=== PATIENT | female | born 1975 | race African-American/Black ===

== ENCOUNTER 2019-11-23 15:56 | Day surgery (SDC) | payer BC, OTHER ==
[2019-11-23 17:13] LABS: Absolute Lymphocytes (CBC) 2.6 K/uL (0.7-4.9); Basophils % 1.6 % (0-1.3); Hematocrit 24.2 % (36.0-45.0); Lymphocytes % 35.2 % (15.3-44.8); MPV 8.8 fL (7.6-11.3); RBC Red Blood Cell Count 3.77 M/uL (3.86-4.86)
[2019-11-23 17:19] LABS: BUN Blood Urea Nitrogen 8 mg/dL (7-18); Bicarbonate 26 mmol/L (21-32); Glucose Level 89 mg/dL (74-106); Potassium 3.7 mmol/L (3.5-5.1); Sodium Level 139 mmol/L (136-145)
[2019-11-23] MEDS ORDERED: NA CHLORIDE 0.9% 1,000 ML ONE (17:51)
[2019-11-23 19:10] LABS: Anisocytosis 1+; Blood Morphology Comment NOTED (NOT SEEN); Platelet Estimate INCR; Urine White Blood Cell Casts OK
[2019-11-23 19:11] LABS: Hypochromasia 2+; Ovalocytes SLIGHT; Poikilocytosis 1+; Polychromasia 1+; Teardrop Cell FEW
--- NOTE | 2019-11-23 20:58 | EDPHYS ---
Physician Documentation [facility] Name: Vannessa Black Age: 44 yrs Sex: Female : 1975 Arrival Date: 11/23/2019 Time: 16:02 Bed 6 Private MD: ED Physician William Perez HPI: 11/23 16:34 This 44 yrs old Black Female presents to ER via Ambulatory with complaints of Lab work. snw 16:34 Pt sent to ED for blood transfusion as an outpt result equaled 6mg/dl Hgb, Pt is to snw have endoscopy soon per Dr. Serna for assumed gastric ulcer. Pt denies abd pain, dark or bloody stools, nausea, or hematemesis. Pt has regular menstrual cycles but denies menorrhagia. . Onset: The symptoms/episode began/occurred 3 week(s) ago, and became persistent. Severity of symptoms: At their worst the symptoms were moderate severe in the emergency department the symptoms have improved mildly. It is unknown whether or not the patient has had similar symptoms in the past. The patient has been recently seen by a physician: Dr. Serna. 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 - Coronavirus screen:: The patient has NOT traveled to [place], [place], or [place] in the past 14 days. - Social history:: Smoking status: Patient reports the use of cigarette tobacco products, smokes one-half pack cigarettes per day, Patient uses alcohol, occasionally. "i drank 4 or 5 days ago, i had a couple of shots of rum". - Ebola Screening: : Patient denies travel to an Ebola-affected area in the 21 days before illness onset. ROS: 16:32 ENT: Negative for injury, pain, and discharge, Neck: Negative for injury, pain, and snw swelling, Cardiovascular: Negative for chest pain, palpitations, and edema, Respiratory: Negative for cough, wheezing, and pleuritic chest pain, + shortness of breath Abdomen/GI: Negative for abdominal pain, nausea, vomiting, diarrhea, and constipation, Back: Negative for injury and pain, : Negative for injury, bleeding, discharge, and swelling, MS/Extremity: Negative for injury and deformity, Skin: Negative for injury, rash, and discoloration. 16:32 Psych: Negative for depression, anxiety, suicide ideation, homicidal ideation, and hallucinations. 16:32 Constitutional: Positive for fatigue. 16:32 Eyes: Positive for pale conjunctiva. 16:32 Neuro: Positive for dizziness, weakness, fatigue. Exam: 16:32 Constitutional: This is a well developed, well nourished patient who is awake, alert, snw and in no acute distress. Head/Face: Normocephalic, atraumatic. Eyes: Pupils equal round and reactive to light, extra-ocular motions intact. Lids and lashes normal. Conjunctiva and sclera are non-icteric and not injected. Cornea within normal limits. Periorbital areas with no swelling, redness, or edema. ENT: Nares patent. No nasal discharge, no septal abnormalities noted. Tympanic membranes are normal and external auditory canals are clear. Oropharynx with no redness, swelling, or masses, exudates, or evidence of obstruction, uvula midline. Mucous membranes moist. Neck: Trachea midline, no thyromegaly or masses palpated, and no cervical lymphadenopathy. Supple, full range of motion without nuchal rigidity, or vertebral point tenderness. No Meningismus. Chest/axilla: Normal chest wall appearance and motion. Nontender with no deformity. No lesions are appreciated. Cardiovascular: Regular rate and rhythm with a normal S1 and S2. No gallops, murmurs, or rubs. Normal PMI, no JVD. No pulse deficits. Respiratory: Lungs have equal breath sounds bilaterally, clear to auscultation and percussion. No rales, rhonchi or wheezes noted. No increased work of breathing, no retractions or nasal flaring. Abdomen/GI: Soft, non-tender, with normal bowel sounds. No distension or tympany. No guarding or rebound. No evidence of tenderness throughout. Back: No spinal tenderness. No costovertebral tenderness. Full range of motion. Skin: Warm, dry with normal turgor. Normal color with no rashes, no lesions, and no evidence of cellulitis. MS/ Extremity: Pulses equal, no cyanosis. Neurovascular intact. Full, normal range of motion. Neuro: Awake and alert, GCS 15, oriented to person, place, time, and situation. Cranial nerves II-XII grossly intact. Motor strength 5/5 in all extremities. Sensory grossly intact. Cerebellar exam normal. Normal gait. Psych: Awake, alert, with orientation to person, place and time. Behavior, mood, and affect are within normal limits. Vital Signs: 16:07 BP 123 / 76; Pulse 76; Resp 17; Temp 98.0(TE); Pulse Ox 100% on R/A; Weight 104.33 kg tw2 (R); Height 5 ft. 6 in. (167.64 cm); Pain 0/10; 18:15 BP 121 / 67; Pulse 68; Resp 14; Pulse Ox 100% on 2 lpm NC; Pain 0/10; em 19:10 BP 117 / 57; Pulse 74; Resp 16; Pulse Ox 100% on R/A; Pain 0/10; aa1 20:30 BP 110 / 54; Pulse 72; Resp 18; Pulse Ox 100% on R/A; Pain 0/10; aa1 16:07 Body Mass Index 37.12 (104.33 kg, 167.64 cm) tw2 MDM: 16:20 Patient medically screened. snw 17:31 Data reviewed: vital signs, nurses notes. Data interpreted: Pulse oximetry: on room air snw is 100 %. Interpretation: normal. Counseling: I had a detailed discussion with the patient and/or guardian regarding: the historical points, exam findings, and any diagnostic results supporting the discharge/admit diagnosis, lab results, the need for outpatient follow up, for definitive care, to return to the emergency department if symptoms worsen or persist or if there are any questions or concerns that arise at home. Response to treatment: the patient's symptoms have mildly improved after treatment. Special discussion: Based on the history and exam findings, there is no indication for further emergent testing or inpatient evaluation. I discussed with the patient/guardian the need to see the property maintenance supervisor for further evaluation of the symptoms. ED course: Pt fatigued. Hgb up from earlier but pt clearly hemoconcentrated. Will hydrate and give one unit PRBC. 20:55 ED course: Blood will not available for an unknown amount of time due to antibodies, la1 Discussed this with the pt and the supervisor component assembler PA for Dr. Kee. Pt amendable to returning in the morning, will keep blood band on and go to day sx in the morning for a transfusion. Pt stable, reports she is feeling well. . 11/23 16:20 Order name: TS snw 11/23 16:20 Order name: TSH snw 11/23 16:20 Order name: Bb Add On snw 11/23 16:20 Order name: CBC with Diff snw 11/23 16:20 Order name: Chem 7 snw 11/23 17:20 Order name: Basic Metabolic Panel; Complete Time: 17:20 EDMS 11/23 16:30 Order name: Diet Heart Healthy; Complete Time: 16:31 snw 11/23 17:20 Order name: Thyroid Stimulating Hormone; Complete Time: 17:21 EDMS 11/23 17:25 Order name: CBC with Automated Diff; Complete Time: 20:47 EDMS 11/23 17:30 Order name: PRBC snw 11/23 18:21 Order name: Type and Screen EDMS 11/23 19:13 Order name: CBC Smear Scan; Complete Time: 20:47 EDMS 11/23 19:39 Order name: ABO/RH no charge; Complete Time: 20:47 EDMS 11/23 16:20 Order name: SL; Complete Time: 16:50 snw Administered Medications: 17:49 Drug: NS 0.9% 1000 ml Route: IV; Rate: 1 bolus; Site: left antecubital; em 19:05 Follow up: IV Status: Completed infusion; IV Intake: 1000ml aa1 Disposition: 11/23/19 20:57 Discharged to Home. Impression: Iron deficiency anemia secondary to blood loss (chronic). - Condition is Stable. - Discharge Instructions: Iron Deficiency Anemia, Adult, Blood Transfusion, Adult, Iron-Rich Diet. - Prescriptions for Vitamin 27- 0.8 mg Oral Tablet - take 1 tablet by ORAL route once daily; 30 tablet. - Medication Reconciliation Form, Thank You Letter form. - Follow up: Emergency Department; When: As needed; Reason: Worsening of condition. Follow up: Private Physician; When: 2 - 3 days; Reason: Recheck today's complaints, Continuance of care, Re-evaluation by your physician. Addendum: 11/25/2019 07:27 Co-signature as Attending Physician, William Perez MD. r n Signatures: Dispatcher [employer] Marguerite Diane RN RN aa1 Rosita Ovalle, GOLF COURSE STARTER-C GOLF COURSE STARTER-Csnw Javed Dangelo RN RN William Mayberry MD MD rn Attema, Lee, GOLF COURSE STARTER-C GOLF COURSE STARTER-Cla1 Zina Reich RN RN tw2 Corrections: (The following items were deleted from the chart) 11/23 21:38 20:57 11/23/2019 20:57 Discharged to Home. Impression: Iron deficiency anemia secondary aa1 to blood loss (chronic). Condition is Stable. Discharge Instructions: Iron Deficiency Anemia, Adult, Blood Transfusion, Adult, Iron-Rich Diet. Prescriptions for Vitamin 27-0.8 mg Oral Tablet - take 1 tablet by ORAL route once daily; 30 tablet. and Forms are Medication Reconciliation Form, Thank You Letter, Antibiotic Education, Prescription Opioid Use. Follow up: Emergency Department; When: As needed; Reason: Worsening of condition. Follow up: Private Physician; When: 2 - 3 days; Reason: Recheck today's complaints, Continuance of care, Re-evaluation by your physician. la1
--- NOTE | 2019-11-23 20:58 | ER ---
Nurse's Notes [facility] Name: Vannessa Hernandez Age: 44 yrs Sex: Female : 1975 Arrival Date: 11/23/2019 Time: 16:02 Bed 6 Private MD: Diagnosis: Iron deficiency anemia secondary to blood loss (chronic) Presentation: 11/23 16:03 Presenting complaint: Patient states: Dr. Serna said I am severely anemic, i feel tw2 like i want to go back to bed, i feel broderick loopy, its gotten worse recently, i am scheduled for an endoscopy, Dr. Serna sent me over here with orders for blood transfusion. Transition of care: patient was not received from another setting of care. Onset of symptoms was November 23, 2019. Risk Assessment: Do you want to hurt yourself or someone else? Patient reports no desire to harm self or others. Initial Sepsis Screen: Does the patient meet any 2 criteria? No. Patient's initial sepsis screen is negative. Does the patient have a suspected source of infection? No. Patient's initial sepsis screen is negative. Care prior to arrival: None. 16:03 Method Of Arrival: Ambulatory tw2 16:03 Acuity: JACEK 3 tw2 Triage Assessment: 16:07 General: Appears in no apparent distress. obese, well groomed, Behavior is calm, tw2 cooperative, appropriate for age. Pain: Denies pain. Neuro: Reports numbness since a while now. 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 - Coronavirus screen:: The patient has NOT traveled to [place], [place], or [place] in the past 14 days. - Social history:: Smoking status: Patient reports the use of cigarette tobacco products, smokes one-half pack cigarettes per day, Patient uses alcohol, occasionally. "i drank 4 or 5 days ago, i had a couple of shots of rum". - Ebola Screening: : Patient denies travel to an Ebola-affected area in the 21 days before illness onset. Screenin:35 Abuse screen: Denies threats or abuse. Nutritional screening: No deficits noted. em Tuberculosis screening: No symptoms or risk factors identified. Fall Risk None identified. Assessment: 16:35 General: Appears in no apparent distress. comfortable, Behavior is calm, cooperative, em appropriate for age, Denies fever. Pain: Denies pain. Neuro: Level of Consciousness is awake, alert, obeys commands, Oriented to person, place, time, situation, Appropriate for age. Cardiovascular: Reports Denies chest pain, Capillary refill < 3 seconds Patient's skin is warm and dry. Respiratory: Reports shortness of breath on exertion Airway is patent Respiratory effort is even, unlabored, Respiratory pattern is regular, symmetrical. GI: Patient currently denies nausea, vomiting. Derm: Skin is intact, is healthy with good turgor, Skin is pink, warm \\T\\ dry. Musculoskeletal: Capillary refill < 3 seconds, Range of motion: intact in all extremities. 17:48 Reassessment: Patient appears in no apparent distress at this time. Patient and/or em family updated on plan of care and expected duration. Pain level reassessed. Patient is alert, oriented x 3, equal unlabored respirations, skin warm/dry/pink. dinner tray given Patient denies pain at this time. 19:10 Reassessment: Patient appears in no apparent distress at this time. Patient and/or aa1 family updated on plan of care and expected duration. Pain level reassessed. Patient is alert, oriented x 3, equal unlabored respirations, skin warm/dry/pink. Pt pending blood transfusion once PRBCs are ready Patient denies pain at this time. 20:35 Reassessment: Patient appears in no apparent distress at this time. Patient and/or aa1 family updated on plan of care and expected duration. Pain level reassessed. Patient is alert, oriented x 3, equal unlabored respirations, skin warm/dry/pink. Spoke with Fanny in blood bank and she reports that pt's blood specimen was just picked up by [facility] for antibody testing and she is unsure how long it will take for pt's results to come back and blood product to be received. Informed CMS EXPERT and will discuss with Dr. Serna for POC. 21:34 Reassessment: Patient appears in no apparent distress at this time. Patient is alert, aa1 oriented x 3, equal unlabored respirations, skin warm/dry/pink. Per Dr. Serna pt to be dc'd and follow up with day surgery in am for blood transfusion. written orders for day surgery given to pt and pt advised not to remove blood band or ID band Patient denies pain at this time. Vital Signs: 16:07 BP 123 / 76; Pulse 76; Resp 17; Temp 98.0(TE); Pulse Ox 100% on R/A; Weight 104.33 kg tw2 (R); Height 5 ft. 6 in. (167.64 cm); Pain 0/10; 18:15 BP 121 / 67; Pulse 68; Resp 14; Pulse Ox 100% on 2 lpm NC; Pain 0/10; em 19:10 BP 117 / 57; Pulse 74; Resp 16; Pulse Ox 100% on R/A; Pain 0/10; aa1 20:30 BP 110 / 54; Pulse 72; Resp 18; Pulse Ox 100% on R/A; Pain 0/10; aa1 16:07 Body Mass Index 37.12 (104.33 kg, 167.64 cm) tw2 ED Course: 16:02 Patient arrived in ED. mr 16:07 Triage completed. tw2 16:07 Arm band placed on. tw2 16:16 Javed Dangelo, RN is Primary Nurse. em 16:18 Rosita Ovalle FNP-C is PHCP. snw 16:18 William Perez MD is Attending Physician. snw 16:35 Patient has correct armband on for positive identification. Placed in gown. Bed in low em position. Call light in reach. Side rails up X2. ekg monitor tech on. Pulse ox on. NIBP on. 16:37 Initial lab(s) drawn, by me, sent to lab. Inserted saline lock: 18 gauge in left aa5 antecubital area, using aseptic technique. Blood collected. 18:54 PHCP role handed off by Rosita Ovalle FNP-C la1 18:54 Ozzie Lazo FNP-C is PHCP. la1 21:34 No provider procedures requiring assistance completed. IV discontinued, intact, aa1 bleeding controlled, No redness/swelling at site. Pressure dressing applied. Administered Medications: 17:49 Drug: NS 0.9% 1000 ml Route: IV; Rate: 1 bolus; Site: left antecubital; em 19:05 Follow up: IV Status: Completed infusion; IV Intake: 1000ml aa1 Intake: 19:05 IV: 1000ml; Total: 1000ml. aa1 Outcome: 20:57 Discharge ordered by MD. la1 21:34 Discharged to home ambulatory. aa1 21:34 Condition: good 21:34 Discharge instructions given to patient, Instructed on discharge instructions, follow up and referral plans. Demonstrated understanding of instructions, follow-up care. 21:38 Patient left the ED. aa1 Signatures: Marguerite Castillo RN RN aa1 Rosita Ovalle, PROCESS CONTROLS TECHNICIAN-C PROCESS CONTROLS TECHNICIAN-Csnw Nadia Portillo Edgar, RN RN em Melisa Gayle RN RN aa5 Ozzie Lazo, PROCESS CONTROLS TECHNICIAN-C PROCESS CONTROLS TECHNICIAN-Cla1 Zina Reich RN RN tw2
[2019-11-24] MEDS ORDERED: NA CHLORIDE 0.9% 250 ML ONE ×2 (09:11→11:43)
[2019-11-24 10:54] VITALS: BP 103/56; TEMP 98.8; O2SAT 99
[2019-11-24 11:01] VITALS: BMI 371.3
[2019-11-24] MEDS ORDERED: FUROSEMIDE 40 MG/4 ML VIAL ONE (11:43)
[2019-11-24 17:16] LABS: Hematocrit 27.5 % (36.0-45.0)
== END 2019-11-24 16:55 | disposition home or self-care (01) ==
LOC: ER 15:56 → DS 11-24 08:21
PROVIDERS: ATTEND Internal Medicine Gastroenterology
DX: D50.9 Iron deficiency anemia, unspecified (principal); R53.83 Other fatigue; F50.89 Other specified eating disorder
CPT/HCPCS: 85025; 80048; 36415 ×2; 86900; 86850; 86870; 86901; 84443; 85018; 85014; 36430; 96360; 99284; J1940; P9016 ×2; J7030 ×3